=== PATIENT | female | born 1940 | race African-American/Black ===

== ENCOUNTER 2016-09-20 21:02 | Emergency (ER) | payer MEDICARE, BC ==
[~2016-09-20] VITALS: Ht 167.6 cm; Wt 74.8 kg
--- NOTE | 2016-09-20 21:12 | Emergency Room Report ---
History of Present Illness General Chief Complaint: Dyspnea/Respdistress Source: Patient, Medical Record, EMS, PMD Present Illness HPI This is a 76-year-old female with history of atrial fibrillation, CHF. She is debilitated prison patient. She is a DO NOT intubate but just to CPR. She presents with acute onset of shortness of breath. Onset just prior to arrival. EMS said she has diffuse rales with respiratory distress and was placed on a CPAP. Unable to get any history from patient because of her condition. Allergies: Coded Allergies: ONDANSETRON (Verified Allergy, Intermediate, 09/20/16) Patient History Past Medical History: see triage record, old chart reviewed, CAD, CHF, AFib Past Surgical History: other Pertinent Family History: none Social History: Denies: smoking Immunizations: other Reviewed Nursing Documentation: PMH: Agreed, PSxH: Agreed Now: No Nursing Documentation-PMH Past Medical History: No History, Except For Hx Cardiac Problems: Yes - DE, CHF Hx Hypertension: Yes Hx Cerebrovascular Accident: Yes Review of Systems Eye: Denies: blurred vision, eye pain ENT: Denies: ear pain, nose congestion, throat swelling Respiratory: Reports: shortness of breath Cardiovascular: Denies: chest pain, palpitations Gastrointestinal: Denies: abdominal pain, diarrhea, nausea, vomiting Musculoskeletal: Denies: back pain, joint pain Skin: Denies: rash Neurological: Denies: headache, numbness Endocrine: Denies: increased thirst, increased urine Hematologic/Lymphatic: Denies: easy bruising All Other Systems: negative except mentioned in HPI Physical Exam Vital Signs Date Time Temp Pulse Resp B/P Pulse Ox O2 Delivery O2 Flow Rate FiO2 09/20/16 21:04 120 45 131/113 100 Bi-pap vitals with tachycardia Sp02 EP Interpretation: reviewed, normal General Appearance: alert, moderate distress, Chronically Ill Head: normocephalic, atraumatic Eyes: bilateral eye EOMI, bilateral eye PERRL ENT: hearing grossly normal, normal pharynx Neck: full range of motion, supple, no meningismus Respiratory: chest non-tender, lungs clear, normal breath sounds Cardiovascular #1: no murmur, irregularly irregular Gastrointestinal: normal bowel sounds, non tender, no mass, no organomegaly, no bruit, non-distended Musculoskeletal: other - stage 4 decub ulcer Neurologic: alert Skin: warm/dry Medical Decision Making Diagnostic Impression: Primary Impression: CHF exacerbation Qualified Codes: I50.9 - Heart failure, unspecified Additional Impressions: Respiratory distress Acute and chronic respiratory failure Rapid atrial fibrillation Pleural effusion on right Anemia, chronic disease Proteinuria ER Course Patient has a history of MS, end-stage, critical aortic stenosis, chronic A. fib with IVC filter. She presents with exacerbation of CHF. she is feeling better now. I discussed the case with Dr. Francois at [facility]. She accepted patient for transfer. no evidence of ACS, PE, dissection Laboratory Tests Test 09/20/16 21:22 09/20/16 22:15 White Blood Count 10.6 K/UL (4.8-10.8) Red Blood Count 3.87 M/UL (4.70-6.10) L Hemoglobin 10.6 G/DL (14.2-18.0) L Hematocrit 35.8 % (42.0-52.0) L Mean Corpuscular Volume 93 FL (80-99) Mean Corpuscular Hemoglobin 27.5 PG (27.0-31.0) Mean Corpuscular Hemoglobin Concent 29.7 G/DL (32.0-36.0) L Red Cell Distribution Width 17.3 % (11.6-14.8) H Platelet Count 320 K/UL (150-450) Mean Platelet Volume 6.5 FL (6.5-10.1) Neutrophils (%) (Auto) 85.7 % (45.0-75.0) H Lymphocytes (%) (Auto) 6.4 % (20.0-45.0) L Monocytes (%) (Auto) 6.0 % (1.0-10.0) Eosinophils (%) (Auto) 1.4 % (0.0-3.0) Basophils (%) (Auto) 0.5 % (0.0-2.0) Prothrombin Time 13.0 SEC (9.30-11.50) H Prothromb Time International Ratio 1.3 (0.9-1.1) H Activated Partial Thromboplast Time 25 SEC (23-33) Sodium Level 142 mEQ/L (135-145) Potassium Level 4.1 mEQ/L (3.4-4.9) Chloride Level 99 mEQ/L (98-107) Carbon Dioxide Level 23 mEQ/L (20-30) Anion Gap 20 (5-15) H Blood Urea Nitrogen 20 mg/dL (7-23) Creatinine 0.7 mg/dL (0.7-1.2) Estimat Glomerular Filtration Rate mL/min (>60) Glucose Level 130 mg/dL (74-106) H Calcium Level 9.4 mg/dL (8.6-10.2) Total Bilirubin 0.3 mg/dL (0.0-1.2) Aspartate Amino Transf (AST/SGOT) 18 U/L (5-40) Alanine Aminotransferase (ALT/SGPT) 11 U/L (3-41) Alkaline Phosphatase 202 U/L (40-129) H Total Creatine Kinase 45 U/L (38-174) Creatine Kinase MB < 1.5 ng/mL (< 6.7) Creatine Kinase MB Relative Index Troponin I < 0.30 ng/mL (<=0.30) Pro-B-Type Natriuretic Peptide 67931 pg/mL (0-450) H Total Protein 7.4 g/dL (6.6-8.7) Albumin 3.1 g/dL (3.5-5.2) L Globulin 4.3 g/dL Albumin/Globulin Ratio 0.7 (1.0-2.7) L Urine Color Pale yellow Urine Appearance Clear Urine pH 6 (4.5-8.0) Urine Specific Elizabeth 1.015 (1.005-1.035) Urine Protein 2+ (NEGATIVE) H Urine Glucose (UA) Negative (NEGATIVE) Urine Ketones Negative (NEGATIVE) Urine Occult Blood Negative (NEGATIVE) Urine Nitrite Negative (NEGATIVE) Urine Bilirubin Negative (NEGATIVE) Urine Urobilinogen Normal MG/DL (0.0-1.0) Urine Leukocyte Esterase Negative (NEGATIVE) Urine RBC 0-2 /HPF (0 - 0) H Urine WBC 0-2 /HPF (0 - 0) Urine Squamous Epithelial Cells Few /LPF (NONE/OCC) Urine Bacteria Few /HPF (NONE) Lab Results Impression labs unremarkable except for elevated BNP EKG Diagnostic Results Rate: tachycardiac, other - afib at 113. ST Segments: no acute changes Rhythm Strip Diag. Results EP Interpretation: yes Rate: 98 Rhythm: no PVC's, no ectopy, other - afib Chest X-Ray Diagnostic Results EP Interpretation: Yes Findings: no consolidation, no pneumothorax, other - CM with effusion Number of Views: 1 Last Vital Signs Date Time Temp Pulse Resp B/P Pulse Ox O2 Delivery O2 Flow Rate FiO2 09/20/16 21:04 120 45 131/113 100 Bi-pap Status: improved Disposition: [facility] Condition: Serious VETO SHEIKH M.D. Sep 20, 2016 21:12
[2016-09-20 21:14] VITALS: BP 131/113
[2016-09-20 21:38] LABS: MEAN CORPUSCULAR HEMOGLOBIN 27.5 PG (27.0-31.0); MEAN CORPUSCULAR HGB CONC 29.7 G/DL (32.0-36.0); MEAN CORPUSCULAR VOLUME 93 FL (80-99); MEAN PLATELET VOLUME 6.5 FL (6.5-10.1); PLATELET COUNT 320 K/UL (150-450); RED BLOOD COUNT 3.87 M/UL (4.70-6.10); RED CELL DISTRIBUTION WIDTH 17.3 % (11.6-14.8); WHITE BLOOD COUNT 10.6 K/UL (4.8-10.8)
[2016-09-20 21:48] LABS: INR 1.3 (0.9-1.1)
[2016-09-20 21:54] LABS: TROPONIN I < 0.30 ng/mL (<=0.30)
[2016-09-20 21:58] LABS: ALANINE AMINOTRANSFERASE 11 U/L (3-41); ALBUMIN/GLOBULIN RATIO 0.7 (1.0-2.7); ANION GAP 20 (5-15); ASPARTATE AMINO TRANSFERASE 18 U/L (5-40); CALCIUM 9.4 mg/dL (8.6-10.2); CARBON DIOXIDE 23 mEQ/L (20-30); CHLORIDE 99 mEQ/L (98-107); CREATININE 0.7 mg/dL (0.7-1.2); HEMOLYSIS 10; POTASSIUM 4.1 mEQ/L (3.4-4.9); SODIUM 142 mEQ/L (135-145); TOTAL PROTEIN 7.4 g/dL (6.6-8.7)
[2016-09-20 22:01] LABS: BASOPHILS % (AUTO) 0.5 % (0.0-2.0); EOSINOPHILS % (AUTO) 1.4 % (0.0-3.0); LYMPHOCYTES % (AUTO) 6.4 % (20.0-45.0); NEUTROPHILS % (AUTO) 85.7 % (45.0-75.0)
[2016-09-20 22:10] LABS: CKMB < 1.5 ng/mL (< 6.7)
[2016-09-20] MEDS ORDERED: ZANTAC150 MG ORAL (22:17)
[2016-09-20] MEDS ORDERED: ZINC SULFATE220 M1 ORAL (22:17)
[2016-09-20] MEDS ORDERED: BACLOFEN10 MG ORAL (22:17)
[2016-09-20] MEDS ORDERED: ASPIR 8181 MG ORAL (22:17)
[2016-09-20] MEDS ORDERED: METOPROLOL SUCC50 MG ORAL (22:17)
[2016-09-20] MEDS ORDERED: DIGOXIN125 MCG ORAL (22:17)
[2016-09-20] MEDS ORDERED: FOLIC ACID1 MG ORAL (22:17)
[2016-09-20] MEDS ORDERED: LISINOPRIL10 MG ORAL (22:17)
[2016-09-20] MEDS ORDERED: MODAFINIL100 MG ORAL (22:17)
[2016-09-20 22:23] LABS: APPEARANCE,URINE CLEAR; KETONES,URINE NEGATIVE (NEGATIVE); LEUKOCYTE ESTERASE ,URINE NEGATIVE (NEGATIVE); NITRITE,URINE NEGATIVE (NEGATIVE); PH,URINE 6 (4.5-8.0); PROTEIN,URINE 2+ (NEGATIVE); UROBILINOGEN,URINE NORMAL MG/DL (0.0-1.0)
[2016-09-20 22:33] LABS: RBC,URINE 0-2 /HPF (0 - 0); SQUAMOUS EPITHELIAL CELL,UR FEW /LPF (NONE/OCC); WBC,URINE 0-2 /HPF (0 - 0)
[2016-09-20 22:34] LABS: BACTERIA,URINE FEW /HPF
[2016-09-20 23:28] VITALS: BP 136/83
[2016-09-21 01:03] VITALS: BP 142/87
[2016-09-21 02:07] VITALS: BP 155/91
[2016-09-21 02:13] VITALS: BP 155/91
--- NOTE | 2016-09-21 10:37 | Diagnostic Imaging Report ---
Indications: Shortness of breath Technique: Portable AP chest Findings: Comparison: None Hazy opacity overlies right mid and lower lung with indistinctness of costophrenic angle and hemidiaphragmatic silhouette. Linear density left midlung. Cardiac silhouette enlarged. Stent-like device overlies the cardiac silhouette in the expected region of the aortic valve. Pulmonary vasculature difficult to assess. No left pleural abnormality. Aortic arch calcified and elongated. Left chest wall pacemaker. IMPRESSION: Right pleural effusion. 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
== END 2016-09-21 02:14 | disposition short-term general hospital (02) ==
LOC: EDBD 21:02 → EDSEX 22:00 → EMR 22:00
DX: I50.9 Heart failure, unspecified (principal); I25.10 Atherosclerotic heart disease of native coronary artery without angina pectoris; J96.20 Acute and chronic respiratory failure, unspecified whether with hypoxia or hypercapnia; I48.91 Unspecified atrial fibrillation; J90 Pleural effusion, not elsewhere classified; D64.9 Anemia, unspecified; R80.9 Proteinuria, unspecified; I25.2 Old myocardial infarction; I10 Essential (primary) hypertension; Z86.73 Personal history of transient ischemic attack (TIA), and cerebral infarction without residual deficits; Z95.2 Presence of prosthetic heart valve; I51.7 Cardiomegaly
CPT/HCPCS: 36415; 71010; 80053; 81003; 82550; 82553; 83880; 84484; 85025; 85610; 85730; 93005; 94664; 96374; 99285; J1940